=== PATIENT | female | born 1950 | race Caucasian/White ===

== ENCOUNTER → 2017-12-24 | Outpatient (CLI) | payer OTHER, MEDICARE | LOC: M.RAD 15:00 | DX: M47.894 Other spondylosis, thoracic region (principal); M43.16 Spondylolisthesis, lumbar region; C50.112 Malignant neoplasm of central portion of left female breast; Z17.0 Estrogen receptor positive status [ER+] ==

== ENCOUNTER → 2018-01-18 | Outpatient (CLI) | payer OTHER, MEDICARE | LOC: M.ULTRA 14:52 | DX: C50.911 Malignant neoplasm of unspecified site of right female breast (principal); E78.00 Pure hypercholesterolemia, unspecified ==

== ENCOUNTER → 2018-04-21 | Outpatient (CLI) | payer OTHER, MEDICARE | LOC: M.ULTRA 11:30 | DX: M79.9 Soft tissue disorder, unspecified (principal); C50.112 Malignant neoplasm of central portion of left female breast ==

== ENCOUNTER → 2019-09-01 | Outpatient (CLI) | payer OTHER | LOC: M.CT 07:53 | DX: Z13.6 Encounter for screening for cardiovascular disorders (principal) ==

== ENCOUNTER → 2019-09-12 | Outpatient (CLI) | payer OTHER | LOC: M.CT 08:38 | DX: R91.1 Solitary pulmonary nodule (principal); I25.10 Atherosclerotic heart disease of native coronary artery without angina pectoris ==

== ENCOUNTER → 2019-11-17 | Outpatient (CLI) | payer MEDICARE ==
--- NOTE | 2019-11-20 11:20 | TST ---
[place] [address] T[facility]MI[facility] STRESS TEST Name: TIFFANY PRESTON Room: [facility]#: [id number] Admission: 11/17/19 Attend Phys: Aguila Baez, Discharge: Date of : 52 Date of Service: 11/17/19 1615 Report #: [id number] THIS REPORT FOR: //name// CC: Aguila Baez DO DATE OF SERVICE: 11/17/2019 INDICATIONS: Exercise stress test was requested in this patient to evaluate because of chest pain. RESULTS: The patient exercised on a Vivek protocol from a pretest heart rate of 170/88 with a pulse of 80. The patient was able to exercise for 6 minutes on Vivek protocol, achieved a peak heart rate of 148, which was greater than 90% of maximum predicted heart rate for the patient's age. Peak blood pressure was 244/64. In recovery, the patient had heart rate of 103, blood pressure 178/69. The patient denied chest pains and exercise was terminated due to elevated blood pressure. The patient's resting ECG showed a normal sinus rhythm with nonspecific ST and T-wave changes. With exercise, there were no arrhythmias noted. The patient was noted to develop [address] segment depression in leads II, III, aVF. The ST-segment changes persisted in recovery for additional 2 minutes. IMPRESSION: 1. Resting ECG abnormality. 2. Nonspecific ST segment changes noted with exercise. 3. No chest pain with exercise. 4. Adequate exercise tolerance. 5. Indeterminate exercise stress test for myocardial ischemia due to baseline ECG abnormalities. 6. If clinically indicated, we would consider stress testing with myocardial perfusion imaging to approve the specificity of stress test to rule out coronary artery disease. RESULTS: 1. Clinical response, nonischemic. 2. ECG response, indeterminate. 3. Indeterminate exercise stress test for predicting future cardiac events secondary to baseline ECG abnormality. <ELECTRONICALLY SIGNED> By: Sj Shultz MD, FACC 11/20/19 1120 [id number] [id number] Sj Shultz MD, FACC /nt
== END ==
LOC: M.CRD 14:38
DX: I25.10 Atherosclerotic heart disease of native coronary artery without angina pectoris (principal); R07.9 Chest pain, unspecified

== ENCOUNTER → 2020-02-07 | Outpatient (CLI) | payer MEDICARE | LOC: M.RAD 13:47 | DX: C50.112 Malignant neoplasm of central portion of left female breast (principal); Z17.0 Estrogen receptor positive status [ER+] ==

== ENCOUNTER → 2020-09-04 | Outpatient (CLI) | payer MEDICARE | LOC: M.CT 10:52 | PROVIDERS: ATTEND Family Medicine | DX: R91.1 Solitary pulmonary nodule (principal); K76.0 Fatty (change of) liver, not elsewhere classified ==